=== PATIENT | male | born 2000 | race Caucasian/White ===

== ENCOUNTER 2018-02-24 19:43 | Inpatient (IN) | payer SELFPAY ==
[~2018-02-24] VITALS: Ht 162.6 cm; Wt 61.2 kg
[2018-02-24 19:43] VITALS: BP 120/61
--- NOTE | 2018-02-24 19:45 | NUR ---
PT PLACED IN BED 5, PATIENT DISROBED COMPLETELY INCLUDING CLOTHES AND SHOES. BELONGINGS PLACED IN BAG AND HANDED TO SECURITY. BEDSIDE EQUIPMENT REMOVED FROM ROOM AND ALL CABINETS LOCKED AND SECURED. SITTER PLACED AT BEDSIDE FOR MONITORING.
--- NOTE | 2018-02-24 19:45 | NUR ---
17/M BIBA FOR SUICIDAL IDEATION STARTED TODAY. PT STATES " IM HEARING VOICES THAT TELLS ME TO KILL MYSELF". NO ACTIVE PLAN AT THIS TIME. PT PLACED ON 5149 HOLD BY MARY CUELLO ON 1906. SITTER AT BEDSIDE, SUICIDAL PRECAUTIONS IN PLACED. PMH: BIPOLAR, DEPRESSION; NONCOMPLIANT TO MEDICINE
--- NOTE | 2018-02-24 20:45 | NUR ---
SITTER AT BEDSIDE. PT RESTING COMFORTABLY ON BED.
[2018-02-24 20:47] LABS: BARBITURATE, URINE NEG. ng/ml (NEG <=200); BENZODIAZEPINE, URINE NEG. ng/mL (NEG <=200); CANNABINOID, URINE NEG. ng/mL (NEG <=50); COCAINE, URINE NEG. ng/mL (NEG <=300); OPIATE, URINE NEG. ng/mL (NEG <=2000); PHENCYCLIDINE SCREEN,URINE NEG. ng/mL (NEG <=25)
[2018-02-24 20:50] LABS: BASOPHILS % (AUTO) 0.3 % (0.0-2.0); EOSINOPHILS # (AUTO) 0.1 K/uL (0-0.4); EOSINOPHILS % (AUTO) 0.9 % (0.0-4.0); HEMATOCRIT 40.4 % (36-52); HEMOGLOBIN 13.7 g/dL (12.0-18.0); LYMPHOCYTES # (AUTO) 3.3 K/uL (2.0-11.5); LYMPHOCYTES % (AUTO) 31.5 % (20.5-51.1); MEAN CORPUSCULAR HEMOGLOBIN 30 pg (27-31); MEAN CORPUSCULAR HGB CONC 34 g/dL (33-37); MONOCYTES # (AUTO) 0.7 K/uL (0.8-1.0); MONOCYTES % (AUTO) 7.1 % (1.7-9.3); NEUTROPHILS # (AUTO) 6.3 K/uL (1.8-7.7); NEUTROPHILS % (AUTO) 60.2 % (42.2-75.2); PLATELET COUNT (AUTO) 251 K/uL (140-450); RED BLOOD CELL COUNT(AUTO) 4.59 MIL/uL (4.20-6.10); RED CELL DISTRIBUTION WIDTH 13.6 % (11.6-13.7); WHITE BLOOD COUNT (AUTO) 10.4 K/uL (4.5-11.0)
[2018-02-24 21:24] LABS: ALBUMIN 3.8 g/dL (3.4-5.0); ANION GAP 11.6 (8-16); ASPARTATE AMINOTRANSFERASE 12 U/L (15-37); CHLORIDE 104 mmol/L (98-107); CREATININE 0.9 mg/dL (0.7-1.3); GFR ARICAN-AMERICAN 140 mL/min (>90); GLUCOSE 91 mg/dL (74-106); POTASSIUM 3.6 mmol/L (3.5-5.1); SODIUM SERUM 139 mmol/L (136-145); TOTAL BILIRUBIN 0.3 mg/dL (0.0-1.0); UREA NITROGEN, BLOOD 12 mg/dL (7-18)
[2018-02-24 21:31] LABS: SALICYLATE < 2.8 mg/dL (2.8-20.0)
[2018-02-24 21:32] LABS: ACETAMINOPHEN < 0.5 ug/ml (10-30)
--- NOTE | 2018-02-24 21:45 | NUR ---
SITTER AT BEDSIDE. PT RESTING COMFORTABLY ON BED.
--- NOTE | 2018-02-24 22:45 | NUR ---
SITTER AT BEDSIDE. PT RESTING COMFORTABLY ON BED.
--- NOTE | 2018-02-24 23:45 | NUR ---
SITTER AT BEDSIDE. PT RESTING COMFORTABLY ON BED.
--- NOTE | 2018-02-25 00:45 | NUR ---
SITTER AT BEDSIDE. PT RESTING COMFORTABLY ON BED.
--- NOTE | 2018-02-25 01:16 | NUR ---
Packets faxed to desiganated facilities , at this time pts chart pending review , will notify ER if placement is found.
[2018-02-25] MEDS ORDERED: OLANZapine 5 MG TAB PO STA (01:40)
--- NOTE | 2018-02-25 01:45 | NUR ---
SITTER AT BEDSIDE. PT RESTING COMFORTABLY ON BED.
--- NOTE | 2018-02-25 01:50 | NUR ---
HOUSE SUP CALLED FOR [facility] MED STOCK
[2018-02-25] MEDS ORDERED: OLANZapine 5 MG TAB ONE (02:41)
--- NOTE | 2018-02-25 04:25 | NUR ---
SITTER AT BEDSIDE. PT RESTING. NAD NOTED.
--- NOTE | 2018-02-25 05:44 | NUR ---
Patient will be admitted to care of DR CINTHYA bragg. Admited to MS. Will go to room 111 B Belongings list completed, AND WITH THE SECURITY DEPARTMENT.
--- NOTE | 2018-02-25 06:00 | NUR ---
Patient appears to be resting comfortably in bed. Vital Signs within normal limits. Respirations even and unlabored WITH SITTER (EMT) AT BEDSIDE.
--- NOTE | 2018-02-25 06:26 | NUR ---
Still no vacancy for any placement , will endorsed to am shift to continue to look for placement and ER classified copy control clerk aware.
[2018-02-25 07:00] VITALS: BP 110/73
--- NOTE | 2018-02-25 07:00 | NUR ---
PATIENT ARRIVED ON [facility] UNIT VIA WHEELCHAIR, ABLE TO AMBULATE WITH STEADY GAIT TO [facility] BED. NO DISTRESS NOTED. DENIES ANY PAIN. RESPIRATIONS EVEN, UNLABORED, ON ROOM AIR. AAOX4, CALM, COOPERATIVE, SKIN COLOR APPROPRIATE TO ETHNICITY, WARM TO TOUCH. SKIN INTACT. NO IV ACCESS PRESENT. LUNGS CTA ON ALL LOBES. ABDOMEN SOFT, NON-DISTENDED. ORIENTED PATIENT TO ROOM. REVIEWED PLAN OF CARE WITH PATIENT. PATIENT VERBALIZED UNDERSTANDING. SAFETY MEASURES IN PLACE, 1:1 SITTER AT BEDSIDE. WILL CONTINUE TO MONITOR.
--- NOTE | 2018-02-25 09:09 | NUR ---
PT REF EKG AT THIS TIME
--- NOTE | 2018-02-25 09:12 | NUR ---
PATIENT HAS BEEN SCREENED AND CATEGORIZED LOW NUTRITION RISK. PATIENT WILL BE SEEN WITHIN 7 DAYS OF ADMISSION. 03/03/[address]
--- NOTE | 2018-02-25 09:25 | NUR ---
PATIENT LYING DOWN IN BED SLEEPING, AROUSABLE BY VOICE. NO DISTRESS NOTED. DENIES ANY PAIN. REPORTS HAVING AUDITORY HALLUCINATIONS AT THIS TIME TELLING HIM TO HARM SELF. SAFETY MEASURES IN PLACE, 1:1 SITTER AT BEDSIDE. WILL CONTINUE TO MONITOR.
--- NOTE | 2018-02-25 10:15 | NUR ---
THE [facility] CALL [facility] IS AWARE OF PATIENT AND ASSISTING WITH PLACEMENT. THERE HAS BEEN NO CONTACT MADE WITH US REGARDING PLACEMENT. WE WILL CONTINUE TO MAKE CALLS AND LOOK FOR BEDS.
--- NOTE | 2018-02-25 11:12 | NUR ---
PATIENT AWAKE, PACING AROUND AND TALKING TO HIMSELF IN ROOM. REPORTS TO CONTINUE TO HEAR VOICES IN HEAD TELLING HIM TO HARM SELF. 1:1 SITTER AT BEDSIDE. WILL CONTINUE TO MONITOR.
[2018-02-25 11:13] LABS: PROTHROMBIN TIME 10.3 secs (10.8-13.4)
[2018-02-25 11:28] LABS: CHOL/HDL RATIO 2.7 (1-4.5); MAGNESIUM 2.4 mg/dL (1.8-2.4); PHOSPHORUS 3.8 mg/dL (2.5-4.9); THYROID STIMULATING HORMONE 0.37 uIU/mL (0.34-3.74)
--- NOTE | 2018-02-25 12:00 | NUR ---
DR. LEARY AT BEDSIDE REVIEWING PLAN OF CARE WITH PATIENT. WILL CONTINUE TO MONITOR.
--- NOTE | 2018-02-25 12:09 | NUR ---
[facility], NO BEDS AVAILABLE PER MU. [facility], NO BEDS AVAILABLE PER TERA. [facility], NO BEDS PER OLIVA- NO WAITLIST AND THEIR ED IS SATURATED. [facility], NO ANSWER AND FAX IS NOT WORKING. [facility], NO BEDS PER RAY. NO [facility] AT THIS TIME. [facility], LINE BUSY, SEVERAL ATTEMPTS MADE.
[2018-02-25] MEDS ORDERED: OLANZapine 5 MG TAB PO SCH (12:15)
--- NOTE | 2018-02-25 13:02 | NUR ---
PATIENT IN ROOM PACING AROUND AND TALKING TO HIMSELF. CONTINUES TO HEAR VOICES IN HEAD. CONDITION UNCHANGED. 1:1 SITTER AT BEDSIDE. WILL CONTINUE TO MONITOR.
--- NOTE | 2018-02-25 13:52 | NUR ---
1100 MET WITH PT AT BEDSIDE AND PROVIDED HIM WITH RESOURCES LIST FOR HOMELESS AND MENTAL HEALTH. WHEN PT ASKED IF HE HAD A HOME HE STATED "[facility]" ASKED IF HE HAD ANY TYPE OF MENTAL HEALTH COUNSELING HE AGAIN REPEATED "[facility]". PT'S NURSE AURORA PRESENT AND ASSESSING PT.
--- NOTE | 2018-02-25 14:54 | NUR ---
PATIENT LYING DOWN IN BED SLEEPING, AROUSABLE BY VOICE. NO DISTRESS NOTED. CONDITION UNCHANGED. SAFETY MEASURES IN PLACE, CALL LIGHT WITHIN REACH. WILL CONTINUE TO MONITOR.
--- NOTE | 2018-02-25 15:33 | NUR ---
ASSISTED AND MONITORED PATIENT DURING SHOWER. PATIENT BACK TO BED SAFELY FROM SHOWER. NO DISTRESS NOTED. CONDITION UNCHANGED. SAFETY MEASURES IN PLACE, 1:1 SITTER AT BEDSIDE. WILL CONTINUE TO MONITOR.
[2018-02-25 16:00] VITALS: BP 98/40
--- NOTE | 2018-02-25 16:29 | NUR ---
DR. WILSON AT BEDSIDE EVALUATING PATIENT. PER DR. WILSON, PATIENT WILL REMAIN 5150 HOLD. SAFETY MEASURES IN PLACE, 1:1 SITTER AT BEDSIDE. WILL CONTINUE TO MONITOR.
--- NOTE | 2018-02-25 18:36 | NUR ---
PATIENT LYING DOWN IN BED SLEEPING, AROUSABLE BY VOICE. NO DISTRESS NOTED. CONDITION UNCHANGED. SAFETY MEASURES IN PLACE, 1:1 SITTER AT BEDSIDE. WILL CONTINUE TO MONITOR.
--- NOTE | 2018-02-25 19:15 | NUR ---
GAVE REPORT TO KNIFE SETTER GRINDER MACHINE NURSE FOR CONTINUITY OF CARE. PATIENT IN STABLE CONDITION.
--- NOTE | 2018-02-25 19:16 | NUR ---
REPORT RECEIVED FROM AM NURSE AT BEDSIDE. PT IN STABLE CONDITION. AAOX4. BOARD UPDATED. 1:1 SITTER AT BEDSIDE. NO IV ACCESS. SKIN WARM, DRY, AND INTACT WITH NO OPEN WOUNDS. NO COMPLAINTS OF PAIN. BED LOCKED IN LOW POSITION. CALL BARRERA WITHIN REACH. SAFETY MEASURES IN PLACE. WILL CONTINUE TO MONITOR.
--- NOTE | 2018-02-25 21:35 | NUR ---
PT SLEEPING COMFORTABLY WITH NO S/S OF DISTRESS. RESPIRATIONS EVEN, UNLABORED, AND WNL. NO COMPLAINTS OF PAIN STATED. WILL CONTINUE TO MONITOR.
[2018-02-26] VITALS: BP 87/41
--- NOTE | 2018-02-26 00:05 | NUR ---
PT SLEEPING COMFORTABLY SUPINE IN BED. NO S/S OF DISTRESS NOTED. NO COMPLAINTS OF PAIN. WILL CONTINUE TO MONITOR.
--- NOTE | 2018-02-26 03:20 | NUR ---
PT SLEEPING COMFORTABLY IN BED. NO S/S OF DISTRESS NOTED. NO COMPLAINTS OF PAIN. RESPIRATIONS WNL, EVEN, AND UNLABORED. WILL CONTINUE TO MONITOR.
--- NOTE | 2018-02-26 05:14 | NUR ---
No beds available at the following facilities: [facility], s/w Kaya. [facility], s/w Tonja. [facility], s/w Ivette. [facility], s/w Alok. [facility], s/w Yana. [facility], s/w Olya. [facility], s/w Ori.
--- NOTE | 2018-02-26 07:05 | NUR ---
REPORT GIVEN TO AM NURSE AT BEDSIDE. PT IN STABLE CONDITION.
--- NOTE | 2018-02-26 07:06 | NUR ---
RECEIVED REPORT FROM DATA INTEGRATION DEVELOPER NURSE. PATIENT LYING DOWN IN BED SLEEPING, AROUSABLE BY VOICE. NO DISTRESS NOTED. DENIES ANY PAIN. AAOX3, CALM, COOPERATIVE, SKIN COLOR APPROPRIATE TO ETHNICITY, WARM TO TOUCH. SKIN INTACT. RESPIRATIONS EVEN, UNLABORED, ON ROOM AIR. LUNGS CTA ON ALL LOBES. ABDOMEN SOFT, NON-DISTENDED. SAFETY MEASURES IN PLACE, 1:1 SITTER AT BEDSIDE. WILL CONTINUE TO MONITOR.
[2018-02-26 08:00] VITALS: BP 97/67
[2018-02-26] MEDS ORDERED: OLAN5TAB30 PO (08:56)
[2018-02-26] MEDS ORDERED: OLANZapine 5 MG TAB PO SCH (09:00)
--- NOTE | 2018-02-26 09:12 | NUR ---
PATIENT LYING DOWN IN BED SLEEPING, AROUSABLE BY VOICE. SCHEDULED MEDICATIONS DUE GIVEN. SAFETY MEASURES IN PLACE, 1:1 SITTER AT BEDSIDE. WILL CONTINUE TO MONITOR.
--- NOTE | 2018-02-26 09:30 | NUR ---
DR. VELIZ AT BEDSIDE RE-EVALUATING PATIENT. 1:1 SITTER AT BEDSIDE. WILL CONTINUE TO MONITOR.
--- NOTE | 2018-02-26 09:53 | NUR ---
THE [facility] CALL [facility] IS ASSISTING WITH PLACEMENT. WE WILL CONTINUE TO MAKE CALLS AND LOCATE AN OPEN BED.
--- NOTE | 2018-02-26 10:12 | NUR ---
DR. VELIZ CLEARED PATIENT OF 5150. WILL NOTIFY MD. WILL CONTINUE TO MONITOR.
--- NOTE | 2018-02-26 10:50 | NUR ---
DISCHARGE INSTRUCTIONS PROVIDED TO PATIENT IN PREFERRED LANGUAGE OF CHADIAN, FOLLOW-UP VISITS WITH MD, NEW MEDICATION REGIMEN AND IMPORTANCE OF TAKING THE MEDICATIONS PER ORDERS. PERSONAL BELONGINGS GIVEN TO PATIENT FROM SECURITY. ANSWERED ALL OF PATIENT'S QUESTIONS REGARDING DISCHARGE. PATIENT VERBALIZED COMPLETE UNDERSTANDING. BUS PASS GIVEN TO PATIENT PER PATIENT REQUEST. PATIENT GOING TO SISTER'S HOUSE AFTER BEING DISCHARGED VIA BUS PASS. ID BANDS REMOVED. NO IV ACCESS PRESENT. ESCORTED PATIENT DOWN TO LOBBY VIA STEADY AMBULATION AND SHOWED PATIENT BUS STOP ACROSS THE STREET. PATIENT DISCHARGED AT THIS TIME VIA PUBLIC TRANSPORT IN STABLE CONDITION.
== END 2018-02-26 10:50 | disposition home or self-care (01) | DRG 885 ==
LOC: MED 19:43 → MTU 02-25 05:44
PROVIDERS: ADMIT General Practice; ATTEND General Practice
DX: F33.3 Major depressive disorder, recurrent, severe with psychotic symptoms (principal); F23 Brief psychotic disorder; R45.851 Suicidal ideations; R45.850 Homicidal ideations; Z59.0 Homelessness
CPT/HCPCS: 36415; 80053; 80305; 82150; 83036; 83690; 83735; 83880; 84100; 84134; 84443; 85025; 85610; 85730; 87081; 99285; G0480; G0482